=== PATIENT | female | born 1950 | race Caucasian/White ===

== ENCOUNTER 2018-12-22 07:45 | Inpatient (IN) | payer OTHER, BC ==
--- NOTE | 2018-12-22 06:18 | PDHPUP ---
History & Physical Update H&P update statement: This history and physical update is based on an assessment of the patient which was completed after admission or registration (within 24 hours), but prior to the surgery/procedure. H&P update: H&P reviewed & patient examined, no change in patient's condition since H&P completed
[~2018-12-22 07:45] MED LIST: ROPIVACAINE 0.2% 80 MG, EPINEPHrine 0.2 MG in SYRINGE 0 ML IU ONE; TRANEXAMIC ACID 3,000 MG in NS (SYRINGE) 50 ML IRR ONE; TRANEXAMIC ACID 3,000 MG/50 ML BAG IRR ONE
[2018-12-22] MEDS ORDERED: DEXAMETHASONE 4 MG/ML VIAL IVP ONE (08:22)
[2018-12-22] MEDS ORDERED: ACETAMINOPHEN 325 MG TAB PO ONE (08:22)
[2018-12-22] MEDS ORDERED: ceFAZolin 2 GM/DEXTROSE 100 ML IV ONE (08:22)
[2018-12-22] MEDS ORDERED: FAMOTIDINE 20 MG TAB PO ONE (08:22)
[2018-12-22] MEDS ORDERED: LR 1,000 ML IV ONE (08:23)
[2018-12-22] MEDS ORDERED: LIDOCAINE 1% 2 ML INJ ID PRN (08:23)
--- NOTE | 2018-12-22 09:57 | PDANEPAE ---
ANE Past Medical History - Cardiovascular History Hx Hypertension: No Hx Arrhythmias: No Hx Chest Pain: No Hx Coronary Artery / Peripheral Vascular Disease: No Hx CHF / Valvular Disease: No Hx Palpitations: No - Pulmonary History Hx COPD: No Hx Asthma/Reactive Airway Disease: No Hx Recent Upper Respiratory Infection: No Hx Oxygen in Use at Home: No Hx Sleep Apnea: No Sleep Apnea Screening Result - Last Documented: Negative - Neurologic History Hx Cerebrovascular Accident: No Hx Seizures: No Hx Dementia: No Neurologic History Comment: injury to upper back, arachnoid cyst pressing on spinal cord - Endocrine History Hx Diabetes: No Endocrine History Comment: hypothyroidism - Renal History Hx Renal Disorders: Yes Renal History Comment: current uti. retention currently. hx of difficulty urinating needing catherization where she required psuedomonos. low GFR per pt report - Liver History Hx Hepatic Disorders: No - Neurological & Psychiatric Hx Hx Neurological and Psychiatric Disorders: No - Cancer History Hx Cancer: Yes Cancer History Comment: breast ca with lumpectomy and radiation - Congenital Disorder History Hx Congenital Disorders: No - GI History Hx Gastrointestinal Disorders: Yes Gastrointestinal History Comment: occ reflux. hiatal hernia - Other Health History Other Health History: wears glasses. babesia from tick bite - on antimalarial medication - Chronic Pain History Chronic Pain: Yes (left hip, leg) - Surgical History Prior Surgeries: lower back surgery 01/2018. lumpectomy for breast ca 08/2017. left RTC 2004. sinus surgery in s. jaw surgery in 1985 ANE Review of Systems Review of Systems: - Exercise capacity METS (RN): 4 METS ANE Patient History - Allergies Allergies/Adverse Reactions: ciprofloxacin [From Cipro] Allergy (Verified 12/08/18 11:23) Arthritis levofloxacin [From Levaquin] Allergy (Verified 12/08/18 11:23) Arthritis - Home Medications Home Medications: Thyroid,Pork [[place] Thyroid] 45 mg PO DAILY 04/13/16 [Last Taken 12/22/18 05:00 ] Albuterol [Proventil Inhaler HFA (*)] 1 - 2 puffs IH Q4H PRN 12/01/18 [Last Taken 11/24/18] Ascorbic Acid [Vitamin C 500 mg (*)] 500 mg PO BID 12/01/18 [Last Taken 12/08/18 ] Atovaquone/Proguanil HCl [Malarone 250/100 mg Tab (*)] 1 tab PO DAILY 12/01/18 [ Last Taken 12/18/18] C/E/Zn/Cu/OM3/DHA/EPA/LUT/ZEAX [Preservision Areds 2 Softgel] 1 each PO DAILY [Last Taken 12/08/18] Calcium Carb W/Vit D [Calcium Carb W/Vit D 500/200 (*)] 500 mg PO DAILY [Last Taken 12/08/18] Cholecalciferol Vit D3 [Vitamin D3 (*)] 5,000 units PO DAILY 12/01/18 [Last Taken 12/08/18] Estradiol [VAGIFEM] 10 mcg VG Q3D 12/01/18 [Last Taken 12/15/18] Fexofenadine HCl [Charisma Allergy] 60 mg PO DAILY PRN 12/01/18 [Last Taken 12/15] Gabapentin [Neurontin 100 MG (*)] 100 mg PO HS 12/01/18 [Last Taken 12/08/18] Herbals/Supplements -Info Only 1 ea PO DAILY 12/01/18 [Last Taken 12/08/18] Multivitamins [Multivitamin (*)] 1 each PO DAILY 12/01/18 [Last Taken 12/08/18] Naproxen Sodium [Aleve 220 MG (*)] 220 mg PO BID PRN 12/01/18 [Last Taken ] Pseudoephedrine HCl [Sudafed] 30 mg PO BID PRN 12/01/18 [Last Taken 12/08/18] Tamoxifen Citrate [Nolvadex 10 MG (*)] 10 mg PO DAILY 12/01/18 [Last Taken 12/19] diphenhydrAMINE [Benadryl 25 MG (*)] 25 mg PO DAILY PRN 12/01/18 [Last Taken ] guaiFENesin/DEXTROMETHORPHAN [Robafen-Dm Syrup] 5 - 10 ml PO DAILY PRN 12/01/18 [Last Taken Unknown] oxyCODONE IR [Oxycodone Ir (*)] 2.5 mg PO DAILY PRN 12/01/18 [Last Taken ] - NPO status NPO Since - Liquids (Date): 12/22/18 NPO Since - Liquids (Time): 06:10 NPO Since - Solids (Date): 12/21/18 NPO Since - Solids (Time): 18:30 - Smoking Hx Smoking Status: Never smoked - Family Anes Hx Family Hx Anesthesia Complications: none ANE Labs/Vital Signs - Vital Signs Blood Pressure: 152/70 Heart Rate: 79 Respiratory Rate: 16 O2 Sat (%): 95 Height: 166.37 cm Weight: 77.564 kg ANE Physical Exam - Airway Mallampati Score: Class 2 - ASA Status ASA Status: II ANE Anesthesia Plan Anesthesia Plan: spinal
[2018-12-22] MEDS ORDERED: MIDAZOLAM 2 MG/2 ML VIAL ONE (10:04)
[2018-12-22] MEDS ORDERED: PROPOFOL/EMULSION 500 MG/50 ML BOTTLE IV ONE (10:05)
[2018-12-22] MEDS ORDERED: BUPIVACAINE/DEXTROSE 7.5MG/ML 2 ML SPINAL AMP SP ONE (10:19)
[2018-12-22] MEDS ORDERED: fentaNYL 100 MCG/2 ML INJ ONE (10:21)
[2018-12-22] MEDS ORDERED: DIPHENOXYLATE/ATROPINE LOMOTIL 1 TAB PO PRN (11:34)
[2018-12-22] MEDS ORDERED: METOCLOPRAMIDE 10 MG/2 ML VIAL IVP PRN ×2 (11:34→11:36)
[2018-12-22] MEDS ORDERED: PROMETHAZINE HCL 25 MG SUPPR PR PRN (11:34)
[2018-12-22] MEDS ORDERED: BISACODYL 10 MG SUPP PR PRN (11:34)
[2018-12-22] MEDS ORDERED: diphenhydrAMINE 25 MG CAP PO PRN (11:34)
[2018-12-22] MEDS ORDERED: LACTULOSE 20 GM/30 ML UDCUP PO PRN (11:34)
[2018-12-22] MEDS ORDERED: MAGNESIUM HYDROXIDE 30 ML UDCUP PO PRN (11:34)
[2018-12-22] MEDS ORDERED: TEMAZEPAM 15 MG CAP PO PRN (11:34)
[2018-12-22] MEDS ORDERED: ONDANSETRON DISINTEGRATING 4 MG TAB PO PRN (11:34)
[2018-12-22] MEDS ORDERED: PROMETHAZINE HCL 25 MG/ML INJ IVP PRN (11:34)
[2018-12-22] MEDS ORDERED: POLYETHYLENE GLYCOL 3350 17 GM PKT PO PRN (11:34)
[2018-12-22] MEDS ORDERED: ONDANSETRON 4 MG/2 ML VIAL IVP PRN ×2 (11:34→11:36)
--- NOTE | 2018-12-22 11:34 | POSTOPPROG ---
Post Op Note Date of Operation: 12/22/18 Surgeon: Ramos Nava Waxer Operator: mason nava PA-C and Saskia Mercado PA-C Anesthesiologist: dr. bryson Anesthesia: Spinal Pre-op Diagnosis: left hip OA Post-op Diagnosis: same Indication: left hip pain Procedure: L JOE ant approach Findings: severe hip OA Inf/Abcess present in the surg proc area at time of surgery?: No EBL: 100-500
[2018-12-22] MEDS ORDERED: NALOXONE HCL 0.4 MG/ML INJ IVP PRN (11:36)
[2018-12-22] MEDS ORDERED: LR 500 ML IV PRN (11:36)
[2018-12-22] MEDS ORDERED: HYDROmorphONE/DILAUDID 2 MG/ML INJ IVP PRN (11:36)
[2018-12-22] MEDS ORDERED: fentaNYL 100 MCG/2 ML INJ IVP PRN (11:36)
[2018-12-22] MEDS ORDERED: PHENYLEPHRINE HCL 100 MCG/ML SYR IVP PRN (11:36)
--- NOTE | 2018-12-22 11:38 | POSTANESTH ---
Post Anesthetic Evaluation Cardiovascular Status: Normal, Stable Respiratory Status: Normal, Stable Level of Consciousness/Mental Status: Can Participate in Eval Pain Control: Adequate, Prn Tx Ordered Nausea/Vomiting Control: Adequate, Prn Tx Ordered Complications Possibly Related to Anesthesia: None Noted
[2018-12-22] MEDS ORDERED: NS 1,000 ML IV SCH (11:45)
[2018-12-22] MEDS ORDERED: ALBUTEROL 60 PUFFS/8 GM MDI IH PRN (11:45)
[2018-12-22] MEDS: CYCLOBENZAPRINE 10 MG TAB PO PRN ×2 (13:13→21:40)
[2018-12-22] MEDS: oxyCODONE IR 5 MG TAB PO PRN ×2 (13:13→16:44)
[2018-12-22] MEDS: ACETAMINOPHEN 325 MG TAB PO SCH (17:50)
[2018-12-22] MEDS: ceFAZolin 2 GM/DEXTROSE 100 ML IV SCH (18:01)
--- NOTE | 2018-12-22 18:23 | PDMN ---
Medical Necessity Medical necessity: [facility] IP only surgery; cpt 76958 L JOE
[2018-12-22] MEDS: GABAPENTIN 100 MG CAP PO SCH ×2 (21:40→21:47)
[2018-12-22] MEDS: ASPIRIN 81 MG CHEWABLE TAB PO SCH (21:40)
[2018-12-22] MEDS: SENNOSIDES/DOCUSATE SODIUM TAB PO SCH ×2 (21:40→21:48)
[2018-12-23] MEDS: ACETAMINOPHEN 325 MG TAB PO SCH ×3 (00:46→11:37)
[2018-12-23] MEDS: oxyCODONE IR 5 MG TAB PO PRN ×4 (00:46→10:16)
[2018-12-23] MEDS: ceFAZolin 2 GM/DEXTROSE 100 ML IV SCH (02:44)
[2018-12-23 08:05] VITALS: BP 132/66
[2018-12-23] MEDS: SENNOSIDES/DOCUSATE SODIUM TAB PO SCH (08:23)
[2018-12-23] MEDS: CYCLOBENZAPRINE 10 MG TAB PO PRN (08:24)
[2018-12-23] MEDS: ASPIRIN 81 MG CHEWABLE TAB PO SCH (08:25)
[2018-12-23] MEDS ORDERED: FAMOTIDINE 20 MG TAB PO SCH (09:00)
[2018-12-23] MEDS ORDERED: TAMOXIFEN CITRATE 10 MG TAB PO SCH (09:00)
--- NOTE | 2018-12-23 09:03 | SOAPPROG ---
SOAP Progress Note Assessment/Plan: Assessment: Patient is doing well POD 1 s/p L JOE Pain management: pain is well controlled on oral pain meds. VTE ppx: recommend aspirin 81 mg BID for 4 weeks, cont MAXIMILIANO and SCDs D/c planning: Patient has done better than anticipated and would like to be discharged to home today. Patient must be released from PT before discharge to home. Plan: 12/23/18 09:02 12/23/18 09:03 Subjective: patient is doing well today, denies SOB, chest pain and N/V Objective: Vital Signs Temp Pulse Resp BP Pulse Ox 37.1 C 81 16 132/66 H 93 12/23/18 08:00 12/23/18 08:00 12/23/18 04:23 12/23/18 08:00 12/23/18 08:00 Laboratory Results 12/23/18 04:55 12/23/18 04:55 12/22/18 12/23/18 12/24/18 05:59 05:59 05:59 Intake Total 1905 500 Output Total 1950 Balance -45 500 LLE: incision dressing is clean and dry, NVI, +pf/df ICD10 Worksheet Patient Problems: Problems Problem Status Onset Primary osteoarthritis of left hip Acute
--- NOTE | 2018-12-23 09:59 | ASMTLACE ---
LACE Length of stay for Answers: 2 days current admission Acuity / Level of Answers: Yes Care: Did the patient have an inpatient admission? Comorbidities - select Answers: Any tumor (including all that apply lymphoma or leukemia) Mild liver or renal disease Opioid dependence / Chronic pain Other Notes: Hypothyroid # of Emergency department Answers: 0 visits in the last 6 months Score: 14 Date Signed: 12/23/2018 09:59 AM Electronically Signed By:FRED Hopkins
[2018-12-23] MEDS ORDERED: THYROID 60 MG TAB PO SCH (10:00)
--- NOTE | 2018-12-23 10:51 | GDS ---
[f rep st] DISCHARGE SUMMARY ADMISSION DIAGNOSIS: Left hip osteoarthritis. DISCHARGE DIAGNOSIS: Left hip osteoarthritis. PROCEDURE: Left total hip arthroplasty. VTE PROPHYLAXIS: Recommend aspirin 81 mg twice daily for 4 weeks. BRIEF DESCRIPTION OF HOSPITAL STAY: Patient was admitted for an elective joint arthroplasty. The pa tamika tolerated the procedure well and has passed physical therapy. The patient was given appropriat e antibiotic prophylaxis and venous thromboembolism prophylaxis. The patient's pain was well control led on oral pain medication, patient was holding down food, and had urinated. Decision was made to d ischarge the patient. The patient was given post-operative prescriptions pre-operatively. PLAN: Please follow up as scheduled with Dr. Ramírez's office on 01/10, at 10:15 a.m. /[id number]/MODL
--- NOTE | 2018-12-23 16:23 | GOP ---
[f rep st] OPERATIVE REPORT DATE OF OPERATION: 12/22/2018 SURGEON: John Ramírez MD CUSTOMER SERVICE REP: Shelly Ramírez PA-C, and Saskia Mercado PA-C. ANESTHESIA: Spinal. PREOPERATIVE DIAGNOSIS: Left hip osteoarthritis. POSTOPERATIVE DIAGNOSIS: Left hip osteoarthritis. PROCEDURE PERFORMED: Left total hip arthroplasty with x-ray. FINDINGS: ESTIMATED BLOOD LOSS: 200 cc. INDICATIONS: The patient has progressively worsening arthritis of the hip which has failed medical management. The patient understands the treatment options including continued non-operative care and has selected surgical intervention. The patient has decided to undergo total hip arthroplasty via the direct anterior approach, understanding the risks of the procedure including , but not limited to, neurovascular injury, infection, persistent pain, component wear and loosening, deep venous thrombosis, pulmonary embolism, limb length inequality, hip instability (including dislocation), and intra-operative fractures. DESCRIPTION OF PROCEDURE: After proper identification of the patient including verification and marking the surgical site, the patient was brought to the operating room and placed in the supine position. All bony prominences were well padded. Anesthesia was induced without complication and intravenous prophylactic antibiotics were administered prior to skin incision. The operative leg was placed in the Trumpf Arch table extension and the well leg in a Yellofin leg irene. The patient was prepped and draped in the usual sterile fashion. The C-arm was draped for intra-operative fluoroscopy to check acetabular position, femoral component position including leg length and femoral offset. Attention was then drawn to surgical exposure of the hip. An incision was made with a #10 Bard Ezekiel blade starting 3 cm lateral and 3 cm distal to the anterior superior iliac spine measuring 8-10 cm and coursing distally toward the greater trochanter. The skin and subcutaneous tissues were divided sharply down to the fascia anaya. The fascia anaya was incised in line with the skin incision exposing the underlying tensor fascia anaya muscle. The muscle was bluntly elevated from the fascia and the first extracapsular Cobra retractor was placed laterally at the junction of the superior femoral neck and greater trochanter. The lateral femoral circumflex vessels were identified, cauterized , and divided with the Aquamantys bipolar cautery. The deep investing fascia of the TFL was divided to allow proper mobilization of the muscle preventing damage during the retraction. The reflected head of the rectus femoris muscle was elevated off the anterior hip capsule and a medial Cobra retractor was placed just proximal to the lesser trochanter. The anterior capsulotomy was made sharply from the superolateral acetabulum to the saddle junction of the superior femoral neck and greater trochanter, then coursing inferomedial towards the lesser trochanter. The retractors were then placed in the intracapsular position for femoral neck osteotomy. Corresponding to pre-operative templating, the osteotomy was made with the oscillating saw carefully protecting the greater trochanter and soft tissues. The femoral head was removed from the acetabulum with a corkscrew and confirmed to be severely arthritic with exposed bone, deformity and osteophytes. Similar findings were confirmed in the acetabulum. The Arch table extension was then placed in 40 degrees external rotation. Attention was then drawn to the acetabular preparation. After placement of the anterior and posterior Cobra retractors outside the labrum and intracapsular, the circumferential labrum was removed sharply. The foveal contents were then removed and hemostasis obtained with cautery. The first reamer selected was sized using the removed femoral head. Reaming began with medialization and then commenced in 2 mm increments at 45 degrees of abduction and 15 degrees of anteversion using fluoroscopic navigation. Reaming ceased 1 mm less than the definitive acetabular component and corresponded to the pre-operative templating. The final acetabular component was inserted using fluoroscopy to achieve proper orientation yielding excellent purchase and stability in the acetabulum. The final acetabular liner was then placed and its seating confirmed. Attention was then turned to the femur. The Arch table extension was placed in extension and adduction, delivering the osteotomized femoral neck into the wound. A 2-pronged femoral elevator was placed at the calcar and another at the tip of the greater trochanter. The posterolateral capsule was released with cautery allowing mobilization of the femur lateral and anterior for preparation. The external rotators were visualized and preserved. A curette and rongeur were used to open the starting point for broaching. Serial broaching started with the #0 broach and ended with the broach that exhibited excellent fit in the proximal femur. A change in pitch during mallet strikes was accompanied by the inability to advance the broach any further. The trial reduction was performed and fluoroscopic navigation was utilized to check limb length. Adjustments were made to equalize limb length accordingly. After the final trials were accepted they were removed and the wound was copiously lavaged. The femoral component was seated to the same depth as the final broach and the femoral head was impacted onto the clean trunnion. The hip was then reduced for the final time and once more fluoroscopy was used to check that limb length equality was achieved. The wound was irrigated and closed in layers, the fascia anaya with 2-0 Quill, the subcutaneous tissue with 2-0 Quill, and the skin with Dermabond. Sterile dressings were applied. Final sharps and sponge counts were accurate. The patient was then transferred to a hospital bed and brought to the recovery room in stable condition. IMPLANTS: Accolade II size 5 x 127. Acetabular component, Trident II 50 mm. Liner was a Trident X3 at 32 mm. Head is a Biolox Delta 36 mm +0. /[id number]/MODL MTDD
== END 2018-12-23 12:26 | disposition home or self-care (01) | DRG 470 ==
LOC: F3N 07:45 → OBSVTOIN 11:39 → F3N 12:18
PROVIDERS: ADMIT Orthopaedic Surgery; ATTEND Orthopaedic Surgery
PROC: 0SRB04Z Replacement of Left Hip Joint with Ceramic on Polyethylene Synthetic Substitute, Open Approach (ICD-10-PCS; principal; 2018-12-22 10:00)
DX: M16.12 Unilateral primary osteoarthritis, left hip (principal); E03.9 Hypothyroidism, unspecified; N18.9 Chronic kidney disease, unspecified; M81.0 Age-related osteoporosis without current pathological fracture; E78.00 Pure hypercholesterolemia, unspecified; K21.9 Gastro-esophageal reflux disease without esophagitis; Z87.440 Personal history of urinary (tract) infections; Z85.3 Personal history of malignant neoplasm of breast
CPT/HCPCS: 97116-GP; 97161-GP; 97530-GP; J0171; J0690; J1100; J2250; J2704; J2795; J3010

== ENCOUNTER → 2019-01-20 | Outpatient (CLI) | payer OTHER, BC | LOC: FIMAGING 11:47 | PROVIDERS: ATTEND Physician Assistant | DX: R60.0 Localized edema (principal); Z86.718 Personal history of other venous thrombosis and embolism ==